=== PATIENT | female | born 1990 | race Two or more races ===

== ENCOUNTER 2021-04-20 11:49 | Emergency (ER) | payer MEDICAID ==
[~2021-04-20] VITALS: Ht 160 cm; Wt 104.9 kg
[2021-04-20] MEDS ORDERED: FAMOTIDINE 20MG/2ML VIAL IV STA (12:10)
[2021-04-20] MEDS ORDERED: MORPHINE SULFATE 4 MG/ML CPJ (NOT FOR IM USE) IV STA (12:10)
[2021-04-20] MEDS ORDERED: ONDANSETRON HCL 4MG/2ML INJ IV STA (12:10)
[2021-04-20] MEDS ORDERED: SODIUM CHLORIDE 0.9% 1,000 ML IV ONE (12:15)
[2021-04-20 13:00] LABS: BASOPHILS % 0.2 % (0.0-2.0); EOSINOPHILS % 0.6 % (0.0-5.0); HEMATOCRIT. 42.2 % (36.0-48.0); HEMOGLOBIN. 13.6 g/dL (12.0-16.0); LYMPHOCYTES % 15.5 % (20.0-50.0); MEAN CORPUSCULAR HEMOGLOBIN 28.6 pg (28.0-32.0); MEAN PLATELET VOLUME 9.4 fl (7.4-10.4); MONOCYTES % 5.1 % (2.0-8.0); NEUTROPHILS % 78.6 % (40.0-76.0); PLATELET 225 x1000/uL (130-400); RED BLOOD CELL COUNT 4.74 mill/uL (4.2-5.4); RED CELL DISTRIBUTION WIDTH 13.8 % (11.6-14.6)
[2021-04-20 13:08] LABS: CHLORIDE 107 mEq/L (98-107)
[2021-04-20 13:20] LABS: HCG SCREEN NEGATIVE
[2021-04-20] MEDS ORDERED: PIPERACILLIN/TAZ 3.375G PREMIX 50 ML IV ONE (13:30)
[2021-04-20 20:32] VITALS: BP 128/74
== END 2021-04-20 21:25 | disposition short-term general hospital (02) ==
LOC: ER 11:49 → CANBEDREQ 04-21 00:03
DX: K80.50 Calculus of bile duct without cholangitis or cholecystitis without obstruction (principal); Z20.822 Contact with and (suspected) exposure to COVID-19
CPT/HCPCS: 36415; 76705; 80053; 83690; 84703; 85025; 87040; 87426; 93005; 96361; 96374; 96375; 99291; J2270; J2405; J2543; J3490; J7030

== ENCOUNTER 2021-04-30 08:47 | Emergency (ER) | payer MEDICAID ==
[~2021-04-30] VITALS: Ht 160 cm; Wt 107.0 kg
[2021-04-30] MEDS ORDERED: IBUPROFEN 400MG TABLET PO ONE (10:30)
[2021-04-30 10:45] VITALS: BP 109/64
[2021-04-30 11:00] LABS: BASOPHILS % 0.4 % (0.0-2.0); EOSINOPHILS % 1.5 % (0.0-5.0); HEMATOCRIT. 37.2 % (36.0-48.0); HEMOGLOBIN. 12.2 g/dL (12.0-16.0); LYMPHOCYTES % 23.3 % (20.0-50.0); MEAN CORPUSCULAR HEMOGLOBIN 29.4 pg (28.0-32.0); MEAN CORPUSCULAR VOLUME 89.4 fL (81.0-99.0); MEAN PLATELET VOLUME 7.9 fl (7.4-10.4); MONOCYTES % 5.7 % (2.0-8.0); NEUTROPHILS % 69.1 % (40.0-76.0); PLATELET 315 x1000/uL (130-400); RED BLOOD CELL COUNT 4.16 mill/uL (4.2-5.4); RED CELL DISTRIBUTION WIDTH 13.9 % (11.6-14.6)
[2021-04-30 11:07] LABS: CHLORIDE 107 mEq/L (98-107)
[2021-04-30 11:50] LABS: HCG SCREEN NEGATIVE
== END 2021-04-30 13:31 | disposition left against medical advice (07) ==
LOC: ER 08:47
DX: R10.9 Unspecified abdominal pain (principal); Z48.00 Encounter for change or removal of nonsurgical wound dressing
CPT/HCPCS: 36415; 80053; 84703; 85025; 99283

== ENCOUNTER 2023-04-28 22:58 | Emergency (ER) | payer MEDICAID ==
[~2023-04-28] VITALS: Ht 160 cm; Wt 104.6 kg
[2023-04-28 23:37] VITALS: BP 142/84; TEMP 97.5; O2SAT 100
[2023-04-29] MEDS ORDERED: ACET325T52 MT (00:50)
[2023-04-29] MEDS ORDERED: IBUPROFEN 800MG TABLET PO ONE (01:00)
[2023-04-29] MEDS: IBUPROFEN 400MG TABLET PO NR (01:40)
[2023-04-29 01:41] VITALS: PULSE 99; RESP 14
== END 2023-04-29 01:43 | disposition home or self-care (01) ==
LOC: ER 22:58
DX: S62.606A Fracture of unspecified phalanx of right little finger, initial encounter for closed fracture (principal); Z87.19 Personal history of other diseases of the digestive system; W18.39XA Other fall on same level, initial encounter; Y93.89 Activity, other specified; Y92.89 Other specified places as the place of occurrence of the external cause; Y99.8 Other external cause status
CPT/HCPCS: 29125; 73130; 81025; 99283; A4565

== ENCOUNTER 2024-04-22 00:26 | Emergency (ER) | payer SELFPAY ==
[~2024-04-22] VITALS: Ht 160 cm; Wt 126.9 kg
[~2024-04-22 00:26] MED LIST: ACET-3800 MT
[2024-04-22 00:37] VITALS: TEMP 36.8; O2SAT 99
[2024-04-22] MEDS ORDERED: LIDO700A15 TP (04:03)
[2024-04-22] MEDS ORDERED: NAPR-1176 MT (04:03)
[2024-04-22] MEDS: KETOROLAC 15MG/ML VIAL IM ONE (05:17)
[2024-04-22] MEDS: KETOROLAC 15MG/ML VIAL IM NR (06:17)
[2024-04-22] MEDS: LIDOCAINE 5% PATCH TOP SCH (06:25)
[2024-04-22 06:26] VITALS: BP 112/58; PULSE 80; RESP 20; O2SAT 98
== END 2024-04-22 06:30 | disposition home or self-care (01) ==
LOC: ER 00:26
DX: M25.561 Pain in right knee (principal); Z79.899 Other long term (current) drug therapy; Z98.890 Other specified postprocedural states; Z79.1 Long term (current) use of non-steroidal anti-inflammatories (NSAID)
CPT/HCPCS: 99283; 73564; 96372; J1885